=== PATIENT | female | born 1950 | race Hispanic/Latino ===

== ENCOUNTER 2021-05-05 07:30 | Inpatient (IN) | payer BC, MEDICARE ==
[2021-05-04 14:01] LABS: BASOPHILS % (AUTO) 0.9 % (0.0-5.0); EOSINOPHILS % (AUTO) 0.7 % (0.0-8.0); HEMATOCRIT 42.3 % (36-48); LYMPHOCYTES % (AUTO) 30.5 % (21.0-51.0); MEAN CORPUSCULAR HEMOGLOBIN 28.8 pg (27.0-33.0); MEAN CORPUSCULAR HGB CONC 32.2 g/dL (32.0-36.0); MEAN CORPUSCULAR VOLUME 89.4 fL (79-99); MONOCYTES % (AUTO) 6.3 % (3.0-13.0); PLATELET COUNT (AUTO) 316 K/uL (130-400); RED BLOOD CELL COUNT(AUTO) 4.73 MIL/uL (4.00-5.50); RED CELL DISTRIBUTION WIDTH 13.7 % (11.0-15.5); WHITE BLOOD COUNT (AUTO) 6.8 K/uL (4.8-10.8)
[2021-05-04 14:11] LABS: INR 1.05 (0.85-1.15); PROTHROMBIN TIME 11.4 SEC (9.6-11.6)
[2021-05-04 14:12] LABS: PARTIAL THROMBOPLASTIN TIME 24.2 SEC (26.3-35.5)
[2021-05-04 14:14] LABS: CREATININE 0.6 mg/dL (0.5-1.5); POTASSIUM 3.6 mmol/L (3.5-5.1)
[2021-05-04 15:47] VITALS: BP 139/69
[~2021-05-05] VITALS: Ht 154.9 cm; Wt 76.7 kg
[2021-05-05] VITALS (21 sets, daily range): BP systolic 89–138; BP diastolic 50–73
[2021-05-05] MEDS: CEFAZOLIN SODIUM 1 GM VIAL IVP SCH ×2 (06:00→11:29)
[~2021-05-05 07:30] MED LIST: EMPA10TA PO; LISI5TAB21 PO; LORA10TA7 PO; METF-446 PO; OMEGA 3 PO; SIMV10TA97 PO
[2021-05-05] MEDS ORDERED: 0.9%NACL 1000ML 1,000 ML IV ONE (07:54)
[2021-05-05] MEDS ORDERED: LIDOCAINE 1%-EPI 1:100,000 20 ML VIAL IJ ONE (11:00)
[2021-05-05] MEDS ORDERED: BUPIVACAINE/PF 0.25% 30ML VIAL IJ ONE (11:00)
[2021-05-05] MEDS ORDERED: FENTANYL CITRATE PF 50 MCG/1 ML 2ML VIAL ONE ×3 (11:01→17:24)
[2021-05-05] MEDS ORDERED: PROPOFOL 10 MG/ML 20ML VIAL IV ONE (11:01)
[2021-05-05] MEDS ORDERED: ROCURONIUM 10MG/1ML SYR 10 MG/ML ML ONE ×2 (11:01→13:29)
[2021-05-05] MEDS ORDERED: BUPIVACAINE/PF 0.25% 10ML VIAL IJ ONE (11:01)
[2021-05-05] MEDS ORDERED: SUCCINYLCHOLINE 200MG/10ML SYR ONE (11:01)
[2021-05-05] MEDS ORDERED: LIDOCAINE PF 100MG/5ML (2%) SYRINGE 5ML ONE (11:01)
[2021-05-05] MEDS ORDERED: EPHEDRINE SULFATE 50 MG/ML AMPULE ONE (11:34)
[2021-05-05] MEDS ORDERED: CEFAZOLIN SODIUM 1 GM VIAL ONE ×2 (12:10→15:22)
[2021-05-05] MEDS ORDERED: CEFAZOLIN SODIUM 1 GM VIAL IRRIG ONE ×2 (13:20→15:26)
[2021-05-05] MEDS ORDERED: MEPERIDINE-PF 25 MG/ML SYG ONE (13:30)
[2021-05-05] MEDS ORDERED: 0.9%NACL 10ML VIAL ONE (13:38)
[2021-05-05] MEDS ORDERED: PHENYLEPHRINE HCL 10 MG/ML 1ML VIAL IV ONE (13:38)
[2021-05-05] MEDS ORDERED: GLYCOPYRROLATE 1 MG/5 ML SYRINGE ONE ×2 (13:41→16:44)
[2021-05-05] MEDS ORDERED: NOREPINEPHRINE BITARTRATE 1 MG/1 ML ML IV ONE (15:14)
[2021-05-05] MEDS ORDERED: ONDANSETRON 4MG INJ ONE (16:44)
[2021-05-05] MEDS ORDERED: NEOSTIGMINE 5MG/5ML SYR IV ONE (16:44)
[2021-05-05] MEDS ORDERED: SUGAMMADEX SODIUM 200 MG/2 ML VIAL IV ONE (17:00)
[2021-05-05] MEDS ORDERED: LIDOCAINE HCL 1% MDV 50ML VIAL ONE (17:57)
[2021-05-05] MEDS ORDERED: ROPIVACAINE 0.5% 5MG/ML 30ML IJ ONE (17:58)
[2021-05-05] MEDS ORDERED: DEXAMETHASONE SOD PHOSPHATE 10MG/ML 1ML VIAL ONE (17:58)
[2021-05-05] MEDS ORDERED: DEXAMETHASONE SOD PHOSPHATE 4 MG/ML 1ML VIAL ONE (17:58)
[2021-05-05] MEDS: 0.9%NACL 1000ML 1,000 ML IV SCH (20:02)
[2021-05-05] MEDS: ZOSYN 3.375GM +NS 50ML IV SCH ×2 (20:02→20:06)
[2021-05-06] VITALS: BP 137/73
[2021-05-06] MEDS: ZOSYN 3.375GM +NS 50ML IV SCH ×3 (03:41→20:07)
[2021-05-06 03:50] LABS: BASOPHILS % (AUTO) 0.2 % (0.0-5.0); EOSINOPHILS % (AUTO) 0.3 % (0.0-8.0); HEMATOCRIT 39.5 % (36-48); LYMPHOCYTES % (AUTO) 5.1 % (21.0-51.0); MEAN CORPUSCULAR HEMOGLOBIN 28.7 pg (27.0-33.0); MEAN CORPUSCULAR HGB CONC 31.6 g/dL (32.0-36.0); MEAN CORPUSCULAR VOLUME 90.8 fL (79-99); MONOCYTES % (AUTO) 7.2 % (3.0-13.0); NEUTROPHILS % (AUTO) 86.9 % (40.0-77.0); PLATELET COUNT (AUTO) 253 K/uL (130-400); RED BLOOD CELL COUNT(AUTO) 4.35 MIL/uL (4.00-5.50); RED CELL DISTRIBUTION WIDTH 14.1 % (11.0-15.5); WHITE BLOOD COUNT (AUTO) 11.5 K/uL (4.8-10.8)
[2021-05-06 04:00] VITALS: BP 128/69
[2021-05-06 04:08] LABS: CREATININE 0.7 mg/dL (0.5-1.5); MAGNESIUM 1.5 mg/dL (1.80-2.40); PHOSPHORUS 3.3 mg/dL (2.5-4.9); POTASSIUM 3.6 mmol/L (3.5-5.1)
[2021-05-06] MEDS ORDERED: MAGNESIUM 2GM PREMIX 50ML 50 ML IV ONE (04:23)
[2021-05-06] MEDS: 0.9%NACL 1000ML 1,000 ML IV SCH ×2 (04:26→16:59)
[2021-05-06] MEDS ORDERED: MAGNESIUM 2GM PREMIX 50ML 50 ML IV PRN (04:30)
[2021-05-06] MEDS: HYDROMORPHONE 1 MG INJ IVP PRN ×2 (07:26→20:08)
[2021-05-06] MEDS: ONDANSETRON 4MG INJ IVP PRN (07:26)
[2021-05-06 08:23] VITALS: BP 116/53
[2021-05-06] MEDS: PANTOPRAZOLE 40 MG/VIAL IVP SCH (10:53)
[2021-05-06] MEDS: KETOROLAC 15MG/ML VIAL (15MG/ML) IV PRN ×2 (11:00→18:17)
[2021-05-06 11:19] VITALS: BP 112/58
[2021-05-06 15:54] VITALS: BP 111/56
[2021-05-06] MEDS: ENOXAPARIN SODIUM 40 MG/0.4 ML SYRINGE SQ SCH (16:59)
[2021-05-06 19:00] VITALS: BP 132/58
[2021-05-07] VITALS (7 sets, daily range): BP systolic 120–148; BP diastolic 53–73
[2021-05-07] MEDS: ZOSYN 3.375GM +NS 50ML IV SCH ×3 (03:08→19:22)
[2021-05-07 04:28] LABS: MAGNESIUM 2.1 mg/dL (1.80-2.40); PHOSPHORUS 1.8 mg/dL (2.5-4.9)
[2021-05-07] MEDS: HYDROMORPHONE 1 MG INJ IVP PRN ×2 (05:10→21:32)
[2021-05-07] MEDS: 0.9%NACL 1000ML 1,000 ML IV SCH (05:10)
[2021-05-07] MEDS: PANTOPRAZOLE 40 MG/VIAL IVP SCH (08:03)
[2021-05-07] MEDS: ENOXAPARIN SODIUM 40 MG/0.4 ML SYRINGE SQ SCH (08:04)
[2021-05-07] MEDS ORDERED: SOD PHOSPHATE 45 MMOL/15 ML VI 15 MMOL in 0.9% NACL 250ML 250 ML IV PRN (11:30)
[2021-05-07] MEDS: KETOROLAC 15MG/ML VIAL (15MG/ML) IV PRN ×2 (13:02→19:24)
[2021-05-07 17:00] LABS: BASOPHILS % (AUTO) 0.3 % (0.0-5.0); HEMATOCRIT 35.5 % (36-48); LYMPHOCYTES % (AUTO) 9.3 % (21.0-51.0); MEAN CORPUSCULAR HEMOGLOBIN 28.9 pg (27.0-33.0); MEAN CORPUSCULAR VOLUME 93.2 fL (79-99); MONOCYTES % (AUTO) 5.4 % (3.0-13.0); NEUTROPHILS % (AUTO) 82.5 % (40.0-77.0); PLATELET COUNT (AUTO) 289 K/uL (130-400); RED BLOOD CELL COUNT(AUTO) 3.81 MIL/uL (4.00-5.50); RED CELL DISTRIBUTION WIDTH 15.1 % (11.0-15.5); WHITE BLOOD COUNT (AUTO) 13.8 K/uL (4.8-10.8)
[2021-05-07 17:13] LABS: CREATININE 0.5 mg/dL (0.5-1.5); PHOSPHORUS 1.6 mg/dL (2.5-4.9); POTASSIUM 3.1 mmol/L (3.5-5.1)
[2021-05-07 17:23] LABS: B-TYPE NATRIURETIC PEPTIDE 89 pg/mL (0-100)
[2021-05-07] MEDS ORDERED: BENZOCAINE/MENTH/CETYLPYRD CL 1 EACH LOZENGE MM PRN (19:30)
[2021-05-08] MEDS: ZOSYN 3.375GM +NS 50ML IV SCH ×3 (02:33→20:41)
[2021-05-08] MEDS: KETOROLAC 15MG/ML VIAL (15MG/ML) IV PRN ×3 (02:33→16:16)
[2021-05-08 04:00] VITALS: BP 149/67
[2021-05-08] MEDS: HYDROMORPHONE 1 MG INJ IVP PRN ×2 (05:19→20:51)
[2021-05-08 08:00] VITALS: BP 137/79
[2021-05-08] MEDS: PANTOPRAZOLE 40 MG/VIAL IVP SCH (10:19)
[2021-05-08] MEDS: ENOXAPARIN SODIUM 40 MG/0.4 ML SYRINGE SQ SCH (10:20)
[2021-05-08 12:00] VITALS: BP 135/63
[2021-05-08 15:01] LABS: CREATININE 0.6 mg/dL (0.5-1.5); MAGNESIUM 1.8 mg/dL (1.80-2.40); PHOSPHORUS 1.2 mg/dL (2.5-4.9); POTASSIUM 3.1 mmol/L (3.5-5.1)
[2021-05-08 15:27] LABS: BASOPHILS % (AUTO) 0.4 % (0.0-5.0); EOSINOPHILS % (AUTO) 0.1 % (0.0-8.0); HEMATOCRIT 29.2 % (36-48); LYMPHOCYTES % (AUTO) 11.6 % (21.0-51.0); MEAN CORPUSCULAR HEMOGLOBIN 28.7 pg (27.0-33.0); MEAN CORPUSCULAR HGB CONC 31.5 g/dL (32.0-36.0); MONOCYTES % (AUTO) 5.5 % (3.0-13.0); NEUTROPHILS % (AUTO) 80.2 % (40.0-77.0); PLATELET COUNT (AUTO) 239 K/uL (130-400); RED BLOOD CELL COUNT(AUTO) 3.21 MIL/uL (4.00-5.50); RED CELL DISTRIBUTION WIDTH 15.3 % (11.0-15.5); WHITE BLOOD COUNT (AUTO) 10.3 K/uL (4.8-10.8)
[2021-05-08] MEDS ORDERED: LIDOCAINE HCL-MPF 1% 2ML VIAL IV PRN (20:00)
[2021-05-08] MEDS ORDERED: POTASSIUM PHOSPHATE 0 MMOL in 0.9% NACL 250ML 250 ML IV SCH (20:00)
[2021-05-08] MEDS ORDERED: POTASSIUM CHLORIDE 20MEQ/100ML 100 ML IV PRN (20:00)
[2021-05-08] MEDS ORDERED: POTASSIUM PHOSPHATE IV SCH ×2 (20:30)
[2021-05-08] MEDS ORDERED: NACL 0.9% IV SCH ×2 (20:30)
[2021-05-08] MEDS: ONDANSETRON 4MG INJ IVP PRN (20:51)
[2021-05-08 20:53] VITALS: BP 140/57
[2021-05-09 00:09] VITALS: BP 123/60
[2021-05-09] MEDS: ZOSYN 3.375GM +NS 50ML IV SCH ×3 (02:42→21:54)
[2021-05-09 04:15] VITALS: BP 125/57
[2021-05-09 05:16] LABS: HEMATOCRIT 29.7 % (36-48); MEAN CORPUSCULAR HEMOGLOBIN 28.1 pg (27.0-33.0); MEAN CORPUSCULAR HGB CONC 31.6 g/dL (32.0-36.0); MEAN CORPUSCULAR VOLUME 88.9 fL (79-99); RED BLOOD CELL COUNT(AUTO) 3.34 MIL/uL (4.00-5.50); RED CELL DISTRIBUTION WIDTH 15.3 % (11.0-15.5); WHITE BLOOD COUNT (AUTO) 7.5 K/uL (4.8-10.8)
[2021-05-09 05:39] LABS: CREATININE 0.5 mg/dL (0.5-1.5); MAGNESIUM 2.2 mg/dL (1.80-2.40); PHOSPHORUS 3.2 mg/dL (2.5-4.9); POTASSIUM 3.3 mmol/L (3.5-5.1)
[2021-05-09] MEDS: KETOROLAC 15MG/ML VIAL (15MG/ML) IV PRN ×2 (05:57→21:55)
[2021-05-09] MEDS ORDERED: POTASSIUM PHOS 15 mMOL+NS250ML 250 ML IV PRN (06:00)
[2021-05-09 07:47] VITALS: BP 130/51
[2021-05-09] MEDS: PANTOPRAZOLE 40 MG/VIAL IVP SCH (09:43)
[2021-05-09] MEDS: ENOXAPARIN SODIUM 40 MG/0.4 ML SYRINGE SQ SCH (09:44)
[2021-05-09 11:21] VITALS: BP 133/53
[2021-05-09 15:57] VITALS: BP 134/66
[2021-05-09 20:00] VITALS: BP 120/55
[2021-05-09] MEDS: POTASSIUM CHLORIDE 10% ELIXIR 20 MEQ/15 ML UDCUP PO PRN (21:24)
[2021-05-09] MEDS ORDERED: PHARMACY COMMUNICATION MISC SCH (23:00)
[2021-05-10] VITALS: BP 148/59
[2021-05-10] MEDS: KCL 20 MEQ ERTAB PO PRN ×4 (00:35→23:17)
[2021-05-10] MEDS: ACETAMINOPHEN 325 MG TAB PO PRN (02:31)
[2021-05-10] MEDS: KETOROLAC 15MG/ML VIAL (15MG/ML) IV PRN ×3 (02:38→15:17)
[2021-05-10] MEDS: ZOSYN 3.375GM +NS 50ML IV SCH ×3 (06:05→21:14)
[2021-05-10 08:23] LABS: BASOPHILS % (AUTO) 0.7 % (0.0-5.0); EOSINOPHILS % (AUTO) 3.5 % (0.0-8.0); HEMATOCRIT 25.1 % (36-48); LYMPHOCYTES % (AUTO) 24.8 % (21.0-51.0); MEAN CORPUSCULAR HEMOGLOBIN 28.2 pg (27.0-33.0); MEAN CORPUSCULAR HGB CONC 31.5 g/dL (32.0-36.0); MEAN CORPUSCULAR VOLUME 89.6 fL (79-99); MONOCYTES % (AUTO) 8.1 % (3.0-13.0); NEUTROPHILS % (AUTO) 58.9 % (40.0-77.0); PLATELET COUNT (AUTO) 296 K/uL (130-400); RED CELL DISTRIBUTION WIDTH 15.3 % (11.0-15.5); WHITE BLOOD COUNT (AUTO) 6.8 K/uL (4.8-10.8)
[2021-05-10 08:33] LABS: CREATININE 0.5 mg/dL (0.5-1.5); POTASSIUM 3.2 mmol/L (3.5-5.1)
[2021-05-10 09:26] VITALS: BP 120/55
[2021-05-10] MEDS: PANTOPRAZOLE 40 MG/VIAL IVP SCH (09:56)
[2021-05-10] MEDS: ENOXAPARIN SODIUM 40 MG/0.4 ML SYRINGE SQ SCH (09:59)
[2021-05-10 17:10] VITALS: BP 127/56
[2021-05-10] MEDS: METFORMIN HCL 500 MG TABLET PO SCH (17:35)
[2021-05-10] MEDS: INSULIN HUMULIN R 100 UNIT/ML 3ML SQ SCH ×2 (17:38→21:19)
[2021-05-10 20:04] VITALS: BP 138/60
[2021-05-10] MEDS: SIMVASTATIN 10 MG TABLET PO SCH (21:15)
[2021-05-10] MEDS ORDERED: HYDROCODONE/ACETAMINOPHEN 5/325 MG TAB PO ONE (21:30)
[2021-05-10] MEDS ORDERED: HYDROCODONE/ACETAMINOPHEN 5/325 MG TAB ONE (21:32)
[2021-05-10 23:50] VITALS: BP 119/57
[2021-05-11] MEDS: KCL 20 MEQ ERTAB PO PRN ×2 (00:05→08:56)
[2021-05-11 03:52] VITALS: BP 115/63
[2021-05-11] MEDS: ZOSYN 3.375GM +NS 50ML IV SCH ×3 (05:45→21:29)
[2021-05-11] MEDS: INSULIN HUMULIN R 100 UNIT/ML 3ML SQ SCH ×4 (05:49→21:41)
[2021-05-11] MEDS: POTASSIUM CHLORIDE 10% ELIXIR 20 MEQ/15 ML UDCUP PO PRN ×2 (06:53→11:26)
[2021-05-11 07:49] VITALS: BP 125/59
[2021-05-11] MEDS: LISINOPRIL 5 MG TABLET PO SCH (08:54)
[2021-05-11] MEDS: PANTOPRAZOLE 40 MG/VIAL IVP SCH (08:54)
[2021-05-11] MEDS: METFORMIN HCL 500 MG TABLET PO SCH ×2 (08:55→17:08)
[2021-05-11] MEDS: LORATADINE 10 MG TABLET PO SCH (08:56)
[2021-05-11] MEDS: ENOXAPARIN SODIUM 40 MG/0.4 ML SYRINGE SQ SCH (08:58)
[2021-05-11 11:00] VITALS: BP 112/55
[2021-05-11 15:41] VITALS: BP 126/58
[2021-05-11] MEDS: SIMVASTATIN 10 MG TABLET PO SCH (21:28)
[2021-05-11 21:36] VITALS: BP 134/63
[2021-05-12] VITALS: BP 117/72
[2021-05-12 04:11] VITALS: BP 145/70
[2021-05-12] MEDS: ZOSYN 3.375GM +NS 50ML IV SCH (05:29)
[2021-05-12] MEDS: INSULIN HUMULIN R 100 UNIT/ML 3ML SQ SCH ×2 (07:30→11:46)
[2021-05-12 08:14] VITALS: BP 137/72
[2021-05-12] MEDS: PANTOPRAZOLE 40 MG/VIAL IVP SCH (09:07)
[2021-05-12] MEDS: METFORMIN HCL 500 MG TABLET PO SCH (09:07)
[2021-05-12] MEDS: ENOXAPARIN SODIUM 40 MG/0.4 ML SYRINGE SQ SCH (09:08)
[2021-05-12] MEDS: LORATADINE 10 MG TABLET PO SCH (09:08)
[2021-05-12] MEDS: LISINOPRIL 5 MG TABLET PO SCH (09:08)
[2021-05-12] MEDS: KCL 20 MEQ ERTAB PO PRN ×2 (09:19→11:19)
[2021-05-12] MEDS: ACETAMINOPHEN 325 MG TAB PO PRN (09:53)
[2021-05-12 10:47] VITALS: BP 126/61
== END 2021-05-12 16:45 | disposition home or self-care (01) | DRG 327 ==
LOC: DAHIP 07:54 → 4AH 18:14
PROVIDERS: ADMIT Surgery; ATTEND Surgery
PROC: 0DBF0ZZ Excision of Right Large Intestine, Open Approach (ICD-10-PCS; principal; 2021-05-05 11:46)
PROC: 0DN60ZZ Release Stomach, Open Approach (ICD-10-PCS; 2021-05-05 11:46)
PROC: 0WQF0ZZ Repair Abdominal Wall, Open Approach (ICD-10-PCS; 2021-05-05 11:46)
PROC: 0DNU0ZZ Release Omentum, Open Approach (ICD-10-PCS; 2021-05-05 11:46)
DX: K63.5 Polyp of colon (principal); K43.0 Incisional hernia with obstruction, without gangrene; E87.0 Hyperosmolality and hypernatremia; E87.1 Hypo-osmolality and hyponatremia; E11.9 Type 2 diabetes mellitus without complications; I10 Essential (primary) hypertension; Z20.822 Contact with and (suspected) exposure to COVID-19; E83.42 Hypomagnesemia; E87.6 Hypokalemia; E87.8 Other disorders of electrolyte and fluid balance, not elsewhere classified; E83.39 Other disorders of phosphorus metabolism; K66.0 Peritoneal adhesions (postprocedural) (postinfection); Z85.038 Personal history of other malignant neoplasm of large intestine; Z88.8 Allergy status to other drugs, medicaments and biological substances
CPT/HCPCS: 36415; 71045; 80048; 82948; 83735; 83880; 84100; 84132; 85025; 85027; 85610; 85730; 87635; 93005; 97039; A4344; A4606; C9113; G0378; J0330; J0690; J1100; J1170; J1650; J1815; J1885; J2001; J2175; J2370; J2405; J2543; J2704; J2710; J2795; J3010; J3475; J3480; J3490; J7030; J7050; J7120